=== PATIENT | female | born 1970 | race Caucasian/White ===

== ENCOUNTER 2017-08-23 16:28 | Emergency (ER) | payer BC, MEDICAID ==
[~2017-08-23] VITALS: Ht 167.6 cm; Wt 87.5 kg
[~2017-08-23 16:28] MED LIST: NO MEDS
[2017-08-23 16:32] VITALS: Ht 167.6 cm; Wt 87.5 kg
--- NOTE | 2017-08-23 16:59 | ERD ---
ER Documentation Chief Complaint Chief Complaint possible allergy, denies itching, saliva feels thick, throat swellling HPI The patient is a 46-year-old female, presenting to the ER because of acute shortness of breath after she ate vegetable soup about 30 minutes ago. She has similar symptoms previously about 2 months ago, denies syncope, near syncope, swollen tongue, difficulty speaking or swallowing, chest pain, abdominal pain, vomiting. She does not smoke nor drink. She recently started Cipro 3 days ago for UTI Past medical history: Anemia Past surgical history: None ROS All systems reviewed and are negative except as per history of present illness. Medications Home Meds Active Scripts Prednisone* (Prednisone*) 20 Mg Tab, 60 MG PO DAILY for 5 Days, TAB Prov:JAMES CASTLE MD 08/23/17 Famotidine* (Pepcid*) 20 Mg Tablet, 20 MG PO BID for 5 Days, TAB Prov:JAMES CASTLE MD 08/23/17 Diphenhydramine Hcl* (Benadryl*) 50 Mg Cap, 50 MG PO Q6 Y for ANXIETY, #20 CAP Prov:JAMES CASTLE MD 08/23/17 Reported Medications [No Meds] No Conflict Check 02/04/14 Allergies Allergies: Coded Allergies: No Known Allergy (Verified , 02/04/14) PMhx/Soc History of Surgery: Yes (KIDNEY STONE REMOVAL 20 YEARS, APPENDECTOMY, ) Anesthesia Reaction: No Hx Neurological Disorder: No Hx Respiratory Disorders: Yes (PNEUMONIA) Hx Cardiac Disorders: No Hx Psychiatric Problems: No Hx Miscellaneous Medical Probl: No Hx Alcohol Use: No Hx Substance Use: No Hx Tobacco Use: No Physical Exam Vitals Vital Signs Date Time Temp Pulse Resp B/P Pulse Ox O2 Delivery O2 Flow Rate FiO2 08/23/17 18:30 98.4 80 18 162/84 100 Nasal Cannula 2.0 08/23/17 16:32 98.4 87 18 168/71 99 Physical Exam Const: No acute distress.Very anxious Head: Atraumatic. Eyes: Normal Conjunctiva. ENT: Normal External Ears, Nose and Mouth.Tongue and uvula are not edematous Neck: Full range of motion. No meningismus. Resp: Clear to auscultation bilaterally. Cardio: Regular rate and rhythm. Abd: Soft, non distended, normal bowel sounds, non tender. Skin: No petechiae or rashes. Back: No midline or flank tenderness. Ext: No cyanosis, or edema. Neur: Awake and alert. No focal deficit Psych: Normal Mood and Affect. Results 24 hrs Current Medications Medications (Trade) Dose Ordered Sig/Xochitl Route PRN Reason Start Time Stop Time Status Last Admin Dose Admin Diphenhydramine HCl (Benadryl) 50 mg ONCE ONCE IV 08/23/17 17:30 08/23/17 17:31 DC 08/23/17 17:14 Famotidine (Pepcid Iv) 20 mg ONCE ONCE IV 08/23/17 17:30 08/23/17 17:31 DC 08/23/17 17:14 Methylprednisolone Sodium Succinate (Solu-Medrol) 125 mg ONCE ONCE IV 08/23/17 17:30 08/23/17 17:31 DC 08/23/17 17:14 Procedures/MDM MEDICAL MAKING DECISION: The patient is a 46-year-old female, presenting with acute food allergy, suspected acute anxiety attack. She was treated with Solu- Medrol 125 mg IV, Pepcid 10 mg IV, Benadryl 50 mg IV for acute pathology with good response. On multiple reevaluation, she felt well. Repeat exam was unremarkable The differential diagnoses considered include but are not limited to acute panic attack, acute anxiety attack, acute anaphylaxis Departure Diagnosis: Primary Impression: Food allergy Condition: Good Comments She was discharged with Pepcid, Benadryl, prednisone I discussed the findings with the patient. I advised the patient to follow-up with the primary physician in about 1-2 days, sooner if needed and return if any concern. The patient's blood pressure was elevated (>120/80) but appears stable without evidence of hypertension emergency or urgency. The patient was counseled about the risks of hypertension and urged to pursue outpatient monitoring and therapy within a week with their primary care physician. JAMES CASTLE MD Aug 23, 2017 16:59
[2017-08-23] MEDS ORDERED: FAMOTIDINE 20 MG INJ IV ONE (17:30)
[2017-08-23] MEDS ORDERED: DIPHENHYDRAMINE 50 MG INJ IV ONE (17:30)
[2017-08-23] MEDS ORDERED: METHYLPREDNISOLONE 125 MG INJ IV ONE (17:30)
[2017-08-23 18:30] VITALS: BP 162/84; PULSE 80; RESP 18; TEMP 98.4
[2017-08-23] MEDS ORDERED: BEN50 PO (19:07)
[2017-08-23] MEDS ORDERED: FAMO-96 PO (19:07)
[2017-08-23] MEDS ORDERED: PRED20TA PO (19:08)
== END 2017-08-23 19:32 | disposition home or self-care (01) ==
LOC: E/R 16:28
DX: T78.1XXA Other adverse food reactions, not elsewhere classified, initial encounter (principal)
CPT/HCPCS: 96374; 96375; 99284; J1200; J2930; Z7610

== ENCOUNTER 2017-09-21 02:32 | Emergency (ER) | payer SELFPAY ==
[~2017-09-21] VITALS: Ht 162.6 cm; Wt 85.5 kg
[~2017-09-21 02:32] MED LIST changes: +BEN50 PO; +FAMO-96 PO; +PRED20TA PO
[2017-09-21 02:39] VITALS: Ht 162.6 cm; Wt 85.5 kg
[2017-09-21] MEDS ORDERED: METHYLPREDNISOLONE 125 MG INJ IV STA (02:46)
[2017-09-21] MEDS ORDERED: FAMOTIDINE 20 MG INJ IV STA (02:46)
[2017-09-21] MEDS ORDERED: DIPHENHYDRAMINE 50 MG INJ IV STA (02:46)
[2017-09-21] MEDS ORDERED: EPINEPHrine 1 MG INJ IM STA (02:46)
[2017-09-21] MEDS ORDERED: ALBUTEROL 0.083% (NEB) 2.5 MG/3 ML AMP INH STA (03:09)
[2017-09-21] MEDS ORDERED: IPRATROPIUM (NEB) 0.5 MG/2.5 ML AMP INH STA (03:10)
--- NOTE | 2017-09-21 03:15 | RADRPT ---
PROCEDURE: Chest. CLINICAL INDICATION: Anaphylaxis. TECHNIQUE: Single frontal view of the chest was obtained. COMPARISON: 11/14/2009. FINDINGS: The cardiac silhouette is magnified. The aortic arch is unremarkable. There is no focal consolidat ion, vascular congestion or pleural effusion. There is no pneumothorax. IMPRESSION: No evidence for active cardiopulmonary disease. .Carmelo Smith MD, MD Date Time Electronically viewed and signed by .Carmelo Smith MD, on 09/21/2017 03:15 .T/
[2017-09-21] MEDS ORDERED: LORAZEPAM 2 MG INJ IV ONE (03:30)
[2017-09-21] MEDS ORDERED: LORA1TAB PO (04:01)
[2017-09-21 04:48] VITALS: BP 148/65; PULSE 107; RESP 20; TEMP 97.8
--- NOTE | 2017-09-29 06:00 | ERD ---
ER Documentation Chief Complaint Chief Complaint allergic rxn took epinephrine 30 min.ago" throat closing" facial numbness HPI 38-year-old female who says she had an allergic reaction. Patient states that epinephrine 30 minutes, and is feeling facial numbness. Patient also has been very anxious lately. Denies nausea vomiting fevers or chills ROS All systems reviewed and are negative except as per history of present illness. Medications Home Meds Active Scripts Lorazepam* (Lorazepam*) 1 Mg Tablet, 1 MG PO Q8, #10 TAB Prov:PRICILLA OLIVER 09/21/17 Prednisone* (Prednisone*) 20 Mg Tab, 60 MG PO DAILY for 5 Days, TAB Prov:JAMES CASTLE MD 08/23/17 Famotidine* (Pepcid*) 20 Mg Tablet, 20 MG PO BID for 5 Days, TAB Prov:JAMES CASTLE MD 08/23/17 Diphenhydramine Hcl* (Benadryl*) 50 Mg Cap, 50 MG PO Q6 Y for ANXIETY, #20 CAP Prov:JAMES CASTLE MD 08/23/17 Reported Medications [No Meds] No Conflict Check 02/04/14 Allergies Allergies: Coded Allergies: No Known Allergy (Verified , 02/04/14) PMhx/Soc History of Surgery: Yes (APPENDECTOMY) Anesthesia Reaction: Yes (POSSIBLE LIDOCAINE) Hx Neurological Disorder: No Hx Respiratory Disorders: No Hx Cardiac Disorders: Yes (HTN) Hx Psychiatric Problems: Yes (ANXIETY ) Hx Miscellaneous Medical Probl: Yes (ANEMIA, LYME DISEASE, KIDNEY STONES) Hx Alcohol Use: No Hx Substance Use: No Hx Tobacco Use: No Smoking Status: Never smoker Physical Exam Physical Exam Const: [] Head: Atraumatic Eyes: Normal Conjunctiva ENT: Normal External Ears, Nose and Mouth. Neck: Full range of motion..~ No meningismus. Resp: Clear to auscultation bilaterally Cardio: Regular rate and rhythm, no murmurs Abd: Soft, non tender, non distended. Normal bowel sounds Skin: No petechiae or rashes Back: No midline or flank tenderness Ext: No cyanosis, or edema Neur: Awake and alert Psych: Normal Mood and Affect Results 24 hrs Current Medications Medications (Trade) Dose Ordered Sig/Xochitl Route PRN Reason Start Time Stop Time Status Last Admin Dose Admin Diphenhydramine HCl (Benadryl) 50 mg ONCE STAT IV 09/21/17 02:46 09/21/17 03:18 DC Epinephrine (EPINEPHrine) 0.5 mg ONCE STAT IM 09/21/17 02:46 09/21/17 03:18 DC Famotidine (Pepcid Iv) 20 mg ONCE STAT IV 09/21/17 02:46 09/21/17 03:18 DC Methylprednisolone Sodium Succinate (Solu-Medrol) 125 mg ONCE STAT IV 09/21/17 02:46 09/21/17 03:18 DC Albuterol (Proventil 0.083% (Neb)) 5 mg ONCE RESP THERAPY STAT INH 09/21/17 03:09 09/21/17 03:18 DC 09/21/17 03:18 Ipratropium [place] (Atrovent 0.02% (Neb)) 0.5 mg ONCE RESP THERAPY STAT INH 09/21/17 03:10 09/21/17 03:18 DC 09/21/17 03:18 Lorazepam (Ativan) 1 mg ONCE ONCE IV 09/21/17 03:30 09/21/17 03:31 DC 09/21/17 03:56 Procedures/MDM Assessment: 38-year-old female who has likely anxiety attack. No evidence of anaphylaxis or allergic reaction. Patient did well with Ativan. Will be discharged home. Departure Diagnosis: Primary Impression: Anxiety Condition: Stable Patient Instructions: Anxiety Reaction PRICILLA OLIVER Sep 29, 2017 06:00
== END 2017-09-21 04:49 | disposition home or self-care (01) ==
LOC: E/R 02:32
DX: F41.9 Anxiety disorder, unspecified (principal); I10 Essential (primary) hypertension; R40.2142 Coma scale, eyes open, spontaneous, at arrival to emergency department; R40.2252 Coma scale, best verbal response, oriented, at arrival to emergency department; R40.2362 Coma scale, best motor response, obeys commands, at arrival to emergency department
CPT/HCPCS: 71010; 94664; J2060; 96374

== ENCOUNTER 2018-12-23 04:33 | Emergency (ER) | payer BC ==
[~2018-12-23] VITALS: Ht 160 cm; Wt 84.0 kg
[~2018-12-23 04:33] MED LIST changes: +LORA1TAB PO
[2018-12-23 04:36] VITALS: Ht 160 cm; Wt 84.0 kg
[2018-12-23] MEDS ORDERED: ONDANSETRON 4 MG INJ IV STA (04:59)
[2018-12-23] MEDS ORDERED: SOD CHLORIDE 0.9% 1,000 ML IV STA (04:59)
[2018-12-23] MEDS ORDERED: HYDROmorphONE 1 MG/ML SYG IV STA (04:59)
--- NOTE | 2018-12-23 05:02 | ERD ---
ER Documentation Chief Complaint Chief Complaint RUQ-ABD PAIN X3DAYS WITH N/V HPI 48-year-old female who presents the emergency room with 3 days of postprandial right upper quadrant abdominal pain that is severe, 9 out of 10 and constant. Mild nausea, one episode of nonbloody nonbilious emesis. The patient is having regular bowel movements. She denies any chest pain or pressure, no pleuritic pain. No fevers or chills. Prior history of appendectomy. ROS All systems reviewed and are negative except as per history of present illness. Medications Home Meds Reported Medications Iron,Carbonyl/Vit C/Vit B12/Fa (IRON 100 PLUS TABLET) 1 Each Tablet, 1 EACH PO DAILY, TAB 12/23/18 Magaldrate/Simethicone* (Mag-Al Plus Suspension*) 30 Ml Oral.susp, 30 ML PO Q6H PRN for GASTROINTESTINAL UPSET, ML 12/23/18 Discontinued Reported Medications [No Meds] No Conflict Check 02/04/14 Discontinued Scripts Lorazepam* (Lorazepam*) 1 Mg Tablet, 1 MG PO Q8, #10 TAB Prov:PRICILLA OLIVER 09/21/17 Prednisone* (Prednisone*) 20 Mg Tab, 60 MG PO DAILY for 5 Days, TAB Prov:JAMES CASTLE MD 08/23/17 Famotidine* (Pepcid*) 20 Mg Tablet, 20 MG PO BID for 5 Days, TAB Prov:JAMES CASTLE MD 08/23/17 Diphenhydramine Hcl* (Benadryl*) 50 Mg Cap, 50 MG PO Q6 PRN for ANXIETY, #20 CAP Prov:JAMES CASTLE MD 08/23/17 Allergies Allergies: Coded Allergies: No Known Allergy (Verified , 02/04/14) PMhx/Soc History of Surgery: Yes (APPENDECTOMY) Anesthesia Reaction: Yes (POSSIBLE LIDOCAINE) Hx Neurological Disorder: No Hx Respiratory Disorders: No Hx Cardiac Disorders: Yes (HTN) Hx Psychiatric Problems: Yes (ANXIETY ) Hx Miscellaneous Medical Probl: Yes (ANEMIA, LYME DISEASE, KIDNEY STONES) Hx Alcohol Use: No Hx Substance Use: No Hx Tobacco Use: No FmHx Family History: No diabetes Physical Exam Vitals Vital Signs Date Temp Pulse Resp B/P (MAP) Pulse Ox O2 O2 Flow FiO2 Time Delivery Rate 12/23/18 98.0 73 15 168/85 100 Nasal 05:50 (112) Cannula 12/23/18 98.0 77 18 187/84 99 Room Air 05:01 (118) 12/23/18 98.0 78 18 187/84 99 04:36 (118) Physical Exam General: Well developed, well nourished, no acute distress Head: Normocephalic, atraumatic. Eyes: Pupils equally reactive, EOM intact ENT: Moist mucous membranes Neck: Supple, no lymphadenopathy Respiratory: Lungs clear bilaterally, no distress Cardiovascular: RRR, no murmurs, rubs, or gallops Abdominal: Soft, focal tenderness of the right upper quadrant with positive Kaye sign. : Deferred MSK: No edema, no unilateral swelling, 5/5 strength Neurologic: Alert and oriented, moving all extremities, normal speech, no focal weakness, no cerebellar signs Skin: No rash Psych: Normal mood Result Diagram: 12/23/18 0515 Results 24 hrs Laboratory Tests Test 12/23/18 05:15 White Blood Count 9.8 10^3/ul Red Blood Count 4.29 10^6/ul Hemoglobin 11.4 g/dl Hematocrit 35.3 % Mean Corpuscular Volume 82.3 fl Mean Corpuscular Hemoglobin 26.6 pg Mean Corpuscular Hemoglobin Concent 32.3 g/dl Red Cell Distribution Width 13.8 % Platelet Count 522 10^3/UL Mean Platelet Volume 9.8 fl Immature Granulocytes % 0.500 % Neutrophils % 74.7 % Lymphocytes % 17.9 % Monocytes % 5.9 % Eosinophils % 0.8 % Basophils % 0.2 % Nucleated Red Blood Cells % 0.0 /100WBC Immature Granulocytes # 0.050 10^3/ul Neutrophils # 7.3 10^3/ul Lymphocytes # 1.8 10^3/ul Monocytes # 0.6 10^3/ul Eosinophils # 0.1 10^3/ul Basophils # 0.0 10^3/ul Nucleated Red Blood Cells # 0.0 10^3/ul Prothrombin Time 13.4 Sec Prothrombin Time Ratio 1.0 INR International Normalized Ratio 1.01 Activated Partial Thromboplast Time 30.3 Sec Current Medications Medications Dose Sig/Xochitl Start Time Status Last (Trade) Ordered Route PRN Stop Time Admin Dose Reason Admin Sodium 1,000 ml @ Q1H STAT 12/23/18 DC 12/23/18 Chloride 1,000 mls/hr IV 04:59 05:17 12/23/18 05:58 1 mg ONCE STAT 12/23/18 DC 12/23/18 Hydromorphone IV 04:59 05:22 HCl 12/23/18 05:01 (Dilaudid) Ondansetron 4 mg ONCE STAT 12/23/18 DC 12/23/18 HCl (Zofran IV 04:59 05:22 Inj) 12/23/18 05:01 Procedures/MDM EKG, MONITORS, & DIAGNOSTIC IMAGING: EKG: I reviewed and interpreted a 12-lead EKG. Rhythm: Normal sinus rhythm ST Changes: No contiguous ST segment elevations T waves: No contiguous T wave inversions Impression: [No evidence of acute cardiac ischemia] Ultrasound gallbladder: Large mobile gallstone without gallbladder wall thickening or pericholecystic fluid per radiologist read LAB INTERPRETATION: I reviewed the laboratory testing and it shows no evidence of infectious process. Chemistry profile is pending MEDICAL DECISION MAKING: Patient presents with postprandial right upper quadrant abdominal pain with focal tenderness concerning for acute cholecystitis, biliary colic or choledocholithiasis. Lower concern for cardiac etiology though EKG and troponin would be appropriate as screening for possible surgical intervention that may be necessary for her gallbladder. Patient will benefit from laboratory testing, ultrasound imaging. ER COURSE: * Patient was given IV fluids and pain control medication * The patient does have improved pain but mild recurrence. Toradol provided * The patient's chemistry profile is pending. The patient does have a large gallstone and biliary colic is likely diagnosis. If the patient cannot control pain or the patient has obstructive pattern inpatient hospitalization would be appropriate. The patient will be endorsed to Dr. Gutierrez to follow-up in these items and reassess the patient. CONSULTATION: [None] DISPOSITION PLAN: Pending labs and reassessment Departure Diagnosis: Primary Impression: Biliary colic Additional Impression: Right upper quadrant abdominal pain Condition: Stable TRINITY CARLSON MD Dec 23, 2018 05:02
[2018-12-23] MEDS ORDERED: IRON1TAB78 PO (06:06)
[2018-12-23] MEDS ORDERED: UDMYL PO (06:06)
[2018-12-23] MEDS ORDERED: KETOROLAC 30 MG INJ IV STA (06:07)
[2018-12-23] MEDS ORDERED: PANT40TA3 PO (06:38)
[2018-12-23] MEDS ORDERED: IBUP-1542 PO (06:38)
[2018-12-23 07:10] VITALS: BP 154/88; PULSE 84; RESP 14
== END 2018-12-23 07:13 | disposition home or self-care (01) ==
LOC: E/R 04:33
DX: K80.50 Calculus of bile duct without cholangitis or cholecystitis without obstruction (principal); I10 Essential (primary) hypertension
CPT/HCPCS: 36415; 76705; 80053; 83690; 84484; 85025; 85610; 85730; 96361; 96374; 96375; 99285; J1170; J1885; J2405; J7030; 93005

== ENCOUNTER 2018-12-26 20:58 | Emergency (ER) | payer SELFPAY ==
[~2018-12-26] VITALS: Ht 162.6 cm; Wt 83.1 kg
[~2018-12-26 20:58] MED LIST changes: -BEN50 PO; -FAMO-96 PO; +IBUP-1542 PO; +IRON1TAB78 PO; -LORA1TAB PO; -NO MEDS; +PANT40TA3 PO; -PRED20TA PO; +UDMYL PO
[2018-12-26 21:09] VITALS: BP 173/91; PULSE 106; RESP 24; Ht 162.6 cm; Wt 83.1 kg
== END 2018-12-26 23:58 | disposition left against medical advice (07) ==
LOC: E/R 20:58
DX: Z53.21 Procedure and treatment not carried out due to patient leaving prior to being seen by health care provider (principal)